=== PATIENT | female | born 1950 | race Caucasian/White ===

== ENCOUNTER 2022-11-16 12:32 | Emergency (ER) | payer BC, SELFPAY ==
[2022-11-16 13:00] VITALS: BP 164/78; PULSE 83; RESP 18; TEMP 36.9; O2SAT 96
--- NOTE | 2022-11-16 13:11 | ED.GENADULT ---
HPI - General Adult General Chief complaint: Upper Respiratory Infection Stated complaint: cough Time Seen by Provider: 11/16/22 13:12 Source: patient Mode of arrival: ambulatory Limitations: no limitations History of Present Illness HPI narrative: 72 Year old female patient presents to the [facility] With complaints of a cough for the past 2 weeks. Patient states she was seen at an urgent care on Friday and they did a chest x-ray and did not see any evidence of pneumonia they did give her some Tessalon Perles for the cough and shoulder was most likely viral. Patient states she has been taking [id number] DayQuil, NyQuil, Robitussin, the Tessalon Perles and continues to have a significant cough to the point where she is not able to sleep at night. Denies any other symptoms including fever, body aches or chills. Related Data Home Medications Medication Instructions Recorded Confirmed alendronate 70 mg tablet 70 mg PO DAILY 11/16/22 11/16/22 amlodipine 5 mg tablet 5 mg PO DAILY 11/16/22 11/16/22 calcium carb-vitamin D3 ER 600 mg 1 tablet PO DAILY 11/16/22 11/16/22 (1,500 mg)-500 unit tablet,ER 24 hr folic acid 1 mg tablet 1 mg PO DAILY 11/16/22 11/16/22 ibuprofen 400 mg tablet (IBU) 400 mg PO DAILY 11/16/22 11/16/22 infliximab 100 mg intravenous 100 mg IV [id number] 11/16/22 11/16/22 solution (Remicade) losartan 100 mg tablet 100 mg PO DAILY 11/16/22 11/16/22 rosuvastatin 20 mg tablet 20 mg PO DAILY 11/16/22 11/16/22 sulfasalazine 500 mg 500 mg PO DAILY 11/16/22 11/16/22 tablet,delayed release vitamins A,C,J-oaao-djgxsb 2,148 1 tablet PO DAILY 11/16/22 11/16/22 mcg-113 mg-45 mg-17.4 mg tablet (PreserVision AREDS) Allergies Allergy/AdvReac Type Severity Reaction Status Date / Time cephalexin [From Keflex] Allergy Swelling Verified 11/16/22 13:19 Review of Systems Review of Systems: CONSTITUTIONAL: Denies fever, chills, or sweats. EYES: Denies visual changes, redness, or discharge. ENT: Denies rhinorrhea, congestion, sore throat, or otalgia. CARDIOVASCULAR: Denies chest pain, palpitations, or edema. RESPIRATORY: Positive cough with dyspnea. GASTROINTESTINAL: Denies abdominal pain, nausea, vomiting, or diarrhea. GENITOURINARY: Denies dysuria or hematuria. SKIN: Denies rash or itching. MUSCULOSKELETAL: Denies back pain, joint pain, or myalgia. NEUROLOGIC: Denies headache, numbness, or weakness. PSYCHIATRIC: Denies anxiety or depression. PMFSH Comments At the time of my signature I agree with nursing past medical history, surgical, social, and family history. There is no relevant family history pertinent to the presenting complaint. Exam Narrative: GENERAL: Well-appearing, well-nourished, and in no acute distress. HEAD: Normocephalic, atraumatic. EYES: PERRLA and EOMI. ENT: Nares clear, no rhinorrhea or epistaxis. Mucous membranes moist. NECK: Supple. No lymphadenopathy CHEST: patient has slight expiratory wheezing noted to bilateral upper lobes on auscultation. Patient does have a significant ongoing cough during examination. HEART: Regular rate and rhythm. No murmur heard. Normal peripheral pulses. ABDOMEN: Soft, nontender, nondistended, normal active bowel sounds. EXTREMITIES: Normal range of motion. No edema. SKIN: Warm, dry, no rash. NEURO: No focal deficits. Alert and oriented x3. Course Course Level of Care: Express Care Visit Reevaluation(s) Reevaluation #1: Re-evaluated patient after breathing treatment. Patient states she is feeling a little bit better after the treatment. Patient's lung sounds are clear except for a very tiny inspiratory wheezing noted to the right upper lobe. Discussed with patient we will discharge her home with oral steroids, albuterol inhaler and Tessalon Perles for the cough. Patient verbalized understanding denies any other questions or concerns. Date: 11/16/22 Time: 14:21 Vital Signs Vital signs: Vital Signs Temperature 36.9 C 11/16/22 13:00 P
[2022-11-16] MEDS: ALBUTEROL SULFATE NEB 2.5 MG/3 ML INH INHALATION (13:32)
[2022-11-16] MEDS: IPRATROPIUM BR 0.02% INH SOLN 0.5 MG/2.5 ML VIAL INHALATION (13:32)
[2022-11-16 14:27] VITALS: O2SAT 96
== END 2022-11-16 14:27 | disposition home or self-care (01) ==
PROVIDERS: Emergency Provider Nurse Practitioner Family
DX: J40 Bronchitis, not specified as acute or chronic (principal); E78.00 Pure hypercholesterolemia, unspecified; I10 Essential (primary) hypertension; M06.9 Rheumatoid arthritis, unspecified; M85.80 Other specified disorders of bone density and structure, unspecified site; H35.30 Unspecified macular degeneration
CPT/HCPCS: 99213; G0463